=== PATIENT | male | born 1950 | race Caucasian/White ===

== ENCOUNTER 2019-07-28 11:54 | Emergency (ER) | payer MEDICARE, BC, SELFPAY ==
--- NOTE | ~2019-07-28 | XR_ITS ---
EXAMINATION: XR chest 2V EXAM DATE: 07/28/2019 12:56 INDICATION: Weakness. TECHNIQUE: Frontal and lateral projections of the chest obtained and reviewed. Comparison is made to prior examination from 12/12/2012. FINDINGS: Development of abnormal peripheral reticulation, uncertain whether or not this is pulmonar y edema or interstitial lung disease. No confluent consolidation, pneumothorax or pleural effusion thomson spected. Borderline heart size. Spine stimulator and lumbar fusion hardware. There is aortic arterial sclerosis. There are bony degenerative changes. IMPRESSION: 1. Moderate diffuse abnormal reticulation, acute (such as edema) versus chronic (such as interstitia l lung disease). Please clinically correlate above imaging findings. Reviewed, dictated and finalized at location A. IMPRESSION: 1. Moderate diffuse abnormal reticulation, acute (such as edema) versus chroni c (such as interstitial lung disease). Please clinically correlate above imaging findings.
--- NOTE | ~2019-07-28 | XR_ITS ---
EXAMINATION: XR hip LT 2V w AP pelvis EXAM DATE: 07/28/2019 12:56 INDICATION: Initial encounter following injury, with pain of the left hip. TECHNIQUE: Left hip frontal, crosstable lateral projections for interpretation. Frontal projection pe lvis. There is no prior study for comparison. FINDINGS: There is acute left subcapital femoral neck closed posttraumatic fracture with impaction, s ome posterior angulation. No dislocation. No other acute findings, pelvis appears intact. Lower lumba r fusion hardware. IMPRESSION: Acute left subcapital femoral neck fracture. Reviewed, dictated and finalized at location A.
[2019-07-28 12:00] VITALS: BP 138/82; PULSE 69; RESP 26; TEMP 36.4; O2SAT 98
--- NOTE | 2019-07-28 12:19 | ED.GENADULT ---
HPI - General Adult General Chief complaint: Extremity Injury, Lower Stated complaint: FALL/WEAKNESS Time Seen by Provider: 07/28/19 12:11 Source: patient and family Mode of arrival: other Limitations: no limitations History of Present Illness HPI narrative: Pt is a 69 y/o male who presents to the ED with c/o increased weakness, that worsened the past few days. Pt notes that he fell twice this morning because his legs gave out. Pt walks with a walker. Pt fell this morning when trying to walk out of the bathroom and he fell again because his spouse could not hold him while he was trying to use the urinal. Pt fell on his lt hip after both falls. Per spouse, pt was not using a walker a month ago. Pt's health has progressively gotten worse the past month. Pt has been going to pain management for pulmonary fibrosis in his back. Pt went to urgent care last week for increased swelling in his BLE. He is trying to wean off of his pain medications. Pt has been drinking of plenty of fluids. He was supposed to get his blood checked today because his liver enzymes have been high. Per pt, pt is on 8L of oxygen at baseline, but he notes that sometimes he goes down to 5L when using his CPAP machine. Pt's spouse states that the pt normally goes to [facility] for most of his care. Per pt, pt reports increased back pain, decreased intake, and lt hip pain, but denies N/V/D, increased SOB, and a head injury. 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 Associated symptoms: loss of appetite and other (increased back pain, lt hip pain) Related Data Home Medications Medication Instructions Recorded Confirmed calcitriol 0.25 mcg PO DAILY 07/28/19 07/28/19 carvedilol mg PO 07/28/19 dexlansoprazole [Dexilant] 30 mg PO DAILY 07/28/19 07/28/19 ezetimibe 10 mg PO DAILY 07/28/19 07/28/19 fenofibrate nanocrystallized 145 mg PO DAILY 07/28/19 07/28/19 furosemide 40 mg PO BID 07/28/19 07/28/19 omega 3,6,9 combination no.7 mg PO 07/28/19 omega 9-vfq-rte-fish oil 1 cap PO DAILY 07/28/19 07/28/19 orphenadrine citrate 100 mg PO Q12H 07/28/19 07/28/19 pantoprazole 40 mg PO HS 07/28/19 07/28/19 quinapril 40 mg PO DAILY 07/28/19 07/28/19 simvastatin 40 mg PO DAILY 07/28/19 07/28/19 tamsulosin 0.4 mg PO DAILY 07/28/19 07/28/19 tapentadol [Nucynta ER] 100 mg PO BID 07/28/19 07/28/19 trazodone 100 mg PO HS PRN 07/28/19 07/28/19 Allergies Allergy/AdvReac Type Severity Reaction Status Date / Time No Known Allergies Allergy Unverified 08/17/16 12:21 Review of Systems Review of Systems: All systems reviewed & are unremarkable except as noted in HPI and below Constitutional: Constitutional: Denies fever(s) Cardiovascular: Cardiovascular: Denies chest pain and Denies syncope Respiratory: Respiratory: Denies dyspnea (increased) Gastrointestinal: Gastrointestinal: Denies diarrhea, Denies nausea, Denies vomiting and Reports other (decreased intake) Musculoskeletal: Musculoskeletal: Reports other (increased back pain, lt hip pain) Neurologic: Reports weakness (increased) [facility] Past Medical History Medical History (Updated 07/28/19 @ 14:26 by Mason Adams MD) Chronic renal insufficiency, stage II (mild) (Chronic) Presence of neurostimulator (Acute) Pulmonary fibrosis (Acute) Surgical History Surgical History (Updated 07/28/19 @ 12:38 by Trisha Ortiz) Hx of spinal fusion (Acute) Social History Social History (Updated 07/28/19 @ 14:20 by Mason Adams MD) Smoking status: Unknown if ever smoked Living arrangements: with family Gender identity (if verbalized by the patient): Male Exam Const: General: no acute distress and ill appearing Nutritional Appearance: obese Orientation/consciousness: oriented x3 HENMT: Ears: external ears normal Mouth: Yes dry mucous membranes Neck: Neck: normal visual inspection Resp: Effort & Inspection: tachypneic Auscultation: wheezes and diminished lung sounds Cardio: Rate: regular rate Rhy
[2019-07-28 13:11] LABS: Basophils Percent Auto 0.1 % (0.2-1.2); Hematocrit 37.4 % (42.0-52.0); Hemoglobin 11.9 g/dL (14.0-18.0); Immature Granulocyte Absolute 0.13 K/mm3 (0.00-0.031); Immature Granulocyte Percent A 1.6 % (0-0.5); Lymphocytes Absolute Auto 0.92 K/mm3 (0.9-3.2); Lymphocytes Percent Auto 11.6 % (18.3-44.2); Mean Corpuscular HGB Conc 31.8 g/dl (32-36); Mean Corpuscular Hemoglobin 28.7 pg (26-34); Mean Corpuscular Volume 90.1 fl (80-100); Mean Platelet Volume 9.7 fl (7.4-10.4); Monocytes Absolute Auto 0.6 K/mm3 (0.1-0.6); Monocytes Percent Auto 7.6 % (2.6-8.5); Neutrophils Absolute Auto 6.3 K/mm3 (1.3-6.7); Neutrophils Percent Auto 79.1 % (45.5-73.1); Platelet Count Result 124 k/mm3 (150-375); Red Blood Count 4.15 M/mm3 (4.6-6.20); Red Cell Distribution Width 17.2 % (11.5-14.5); White Blood Count 7.9 K/mm3 (4.5-10.0)
[2019-07-28 13:21] LABS: Alanine Aminotransferase 131 U/L (4-50); Albumin Level 3.6 g/dL (3.5-5.1); Alkaline Phosphatase 375 U/L (38-126); Aspartate Amino Transferase 198 U/L (17-59); Bilirubin,Total 3.6 mg/dL (0.2-1.3); Blood Urea Nitrogen 47 mg/dL (9-20); Calcium 10.1 mg/dL (8.4-10.2); Carbon Dioxide 31 mmol/L (22-30); Chloride 97 mmol/L (98-107); Estimated CRCL calculation 48 ml/min; Estimated Glomerular Filt Rate 38; Glucose 115 mg/dL (75-110); Potassium 3.5 mmol/L (3.4-5.0); Sodium 136 mmol/L (137-145)
[2019-07-28] MEDS: MORPHINE SULFATE 4 MG/ML INJ IV PUSH (14:25)
[2019-07-28 14:27] VITALS: BP 117/74; PULSE 68; RESP 23; TEMP 36.7; O2SAT 97
== END 2019-07-28 14:51 | disposition short-term general hospital (02) ==
PROVIDERS: Emergency Provider Emergency Medicine; Visit Provider Emergency Medicine
DX: S72.002A Fracture of unspecified part of neck of left femur, initial encounter for closed fracture (principal); W19.XXXA Unspecified fall, initial encounter; J84.10 Pulmonary fibrosis, unspecified; Z96.82 Presence of neurostimulator; N18.3 Chronic kidney disease, stage 3 (moderate)
CPT/HCPCS: 36415; 71046; 73502; 73521; 80053; 85025; 96374; 99285; J2270